=== PATIENT | male | born 2005 | race African-American/Black ===

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

== ENCOUNTER 2025-06-20 07:03 | Emergency (ER) | payer OTHER ==
[2025-06-20 07:17] VITALS: TEMP 96.7
--- NOTE | 2025-06-20 07:26 | ERPHSYRPT ---
- History of Present Illness Patient Subjective Stated Complaint: Pt has had a migraine for 3 days with N&V, pt does not have a hx of migraines, pt is autistic and usually doesn't complain about anything Triage Nursing Assessment: Pt brought to the ER by his mother, hypertensive, rates pain as 02/17, N&V, denies chest pain, no shortness of breath, denies any injuries to head, pain to lower back of head, doesn't appear to be in any distress at this time Physician History: Headache, onset of symptoms about 3 days ago, associated nausea and vomiting, no previous similar headache in the past although the mother states that he does frequently get headaches but this 1 is different and that it the intensity was worse, he is a daily marijuana user, history obtained to the mother as the patient is autistic, She denied history of fever, she also denies any URI type symptoms Timing/Duration: day(s) (3) Head Pain Location: occipital Severity of Pain-Max: moderate Severity of Pain-Current: moderate Recent Head Trauma: frequent headaches Associated Symptoms: nausea/vomiting Allergies/Adverse Reactions: No Known Drug Allergies Allergy (Verified 06/20/25 07:17) Home Medications: Divalproex Sodium 1,500 mg PO UD 11/29/24 [History] Guanfacine HCl 2 mg PO DAILY 06/20/25 [History] Hx Tetanus, Diphtheria Vaccination/Date Given: Yes Hx Influenza Vaccination/Date Given: No Hx Pneumococcal Vaccination/Date Given: No Travel Risk - International Travel Have you traveled outside of the country in past 3 weeks: No - Emerging Infectious Disease Are you exhibiting symptoms associated with any current EIDs: No - Past Medical History Pertinent Past Medical History: Yes Psycho-Social History: Other Other Medical History: autism. behavioral issues. intelectual deficiency - Past Surgical History Past Surgical History: No - Social History Smoking Status: Current every day smoker How long have you smoked: vapes Exposure to second hand smoke: No Drug Use: marijuana - Social Determinants of Health Will the patient participate in the screening: Yes Do you worry about a steady place to live?: No Do you have any problems with any of the following?: No known problems In the past 12 months,have you had to go without utilities?: No Transportation Issues: No Has anyone in your support network made you feel unsafe?: No Have you or anyone in your house had to go w/o enough food: No - Nursing Vital Signs Nursing Vital Signs: Initial Vital Signs Temperature 96.7 F 06/20/25 07:09 Pulse Rate 65 06/20/25 07:09 Blood Pressure 159/89 06/20/25 07:09 O2 Sat by Pulse Oximetry 99 06/20/25 07:09 Pain Scale Pain Intensity 6 - Physical Exam General Appearance: no apparent distress, obese Eye Exam: PERRL/EOMI Ears, Nose, Throat Exam: normal ENT inspection, moist mucous membranes Neck Exam: normal inspection, supple, full range of motion, No meningismus Respiratory Exam: normal breath sounds, lungs clear Cardiovascular Exam: regular rate/rhythm, normal heart sounds Gastrointestinal/Abdominal Exam: soft, No tenderness, No distention Back Exam: normal inspection, normal range of motion Mental Status Exam: alert, oriented x 3, cooperative, other (autistic) order builder loader Exam: normal speech, PERRL, No facial droop Coordination/Gait Exam: normal cerebellar function Motor/Sensory Exam: no motor deficit, no sensory deficit Skin Exam: normal color, warm, dry, No rash SpO2 Interpretation: normal SpO2: 99 Ordered Tests: Medication Summary Discontinued Medications Generic Name Dose Route Start Last Admin Trade Name Freq PRN Reason Stop Dose Admin Ketorolac Tromethamine 30 mg 06/20/25 07:26 06/20/25 07:38 Ketorolac Tromethamine 30 Mg/Ml Inj IV 06/20/25 07:27 30 mg STAT ONE Administration Ketorolac Tromethamine Confirm 06/20/25 07:32 Ketorolac Tromethamine 30 Mg/Ml Inj Administered 06/20/25 07:33 Dose 30 mg .ROUTE .STK-MED ONE Prochlorperazine Edisylate 5 mg 06/20/25 07:26 06/20/25 07:36 Prochlorperazine Edisylate 10 Mg/2 Ml Vial IV 06/20/25 07:27 5 mg STAT ONE Administration Prochlorperazine Edisylate Confirm 06/20/25 07:32 Prochlorperazine Edisylate 10 Mg/2 Ml Vial Administered 06/20/25 07:33 Dose 10 mg .ROUTE .STK-MED ONE - Progress Progress Note: 06/20/25 08:24 clinically improved, outpatient follow up - Departure Departure Disposition: Home Clinical Impression: Headache Qualifiers: Headache type: unspecified Headache chronicity pattern: acute headache Intractability: not intractable Qualified Code(s): R51.9 - Headache, unspecified Condition: Stable Critical Care Time: No Referrals: ZULEYKA ROWE PA [Primary Care Provider, UNKNOWN] - Follow up with PCP 7 days Instructions: Headache, Adult (DC)
[2025-06-20] MEDS ORDERED: Compazine 10 MG/2 ML ONE (07:32)
[2025-06-20] MEDS ORDERED: TORAdol 30 mg Injection ONE (07:32)
[2025-06-20] MEDS: Compazine 10 MG/2 ML IV ONE (07:36)
[2025-06-20] MEDS: TORAdol 30 mg Injection IV ONE (07:38)
[2025-06-20 08:10] VITALS: RESP 20
[2025-06-20 08:36] VITALS: BP 139/90; PULSE 59; O2SAT 96
--- NOTE | 2025-06-20 18:56 | ERPHSYRPT ---
- History of Present Illness Patient Subjective Stated Complaint: Pt has had a migraine for 3 days with N&V, pt does not have a hx of migraines, pt is autistic and usually doesn't complain about anything Triage Nursing Assessment: Pt brought to the ER by his mother, hypertensive, rates pain as 02/17, N&V, denies chest pain, no shortness of breath, denies any injuries to head, pain to lower back of head, doesn't appear to be in any distress at this time Allergies/Adverse Reactions: No Known Drug Allergies Allergy (Verified 06/20/25 07:17) Home Medications: Divalproex Sodium 1,500 mg PO UD 11/29/24 [History] Guanfacine HCl 2 mg PO DAILY 06/20/25 [History] Hx Tetanus, Diphtheria Vaccination/Date Given: Yes Hx Influenza Vaccination/Date Given: No Hx Pneumococcal Vaccination/Date Given: No Travel Risk - International Travel Have you traveled outside of the country in past 3 weeks: No - Emerging Infectious Disease Are you exhibiting symptoms associated with any current EIDs: No - Past Medical History Pertinent Past Medical History: Yes Psycho-Social History: Other Other Medical History: autism. behavioral issues. intelectual deficiency - Past Surgical History Past Surgical History: No - Social History Smoking Status: Current every day smoker How long have you smoked: vapes Exposure to second hand smoke: No Drug Use: marijuana - Social Determinants of Health Will the patient participate in the screening: Yes Do you worry about a steady place to live?: No Do you have any problems with any of the following?: No known problems In the past 12 months,have you had to go without utilities?: No Transportation Issues: No Has anyone in your support network made you feel unsafe?: No Have you or anyone in your house had to go w/o enough food: No - Nursing Vital Signs Nursing Vital Signs: Initial Vital Signs Temperature 96.7 F 06/20/25 07:09 Pulse Rate 65 06/20/25 07:09 Blood Pressure 159/89 06/20/25 07:09 O2 Sat by Pulse Oximetry 99 06/20/25 07:09 Pain Scale Pain Intensity 6 - Physical Exam SpO2 Interpretation: normal SpO2: 96 Ordered Tests: Medication Summary Discontinued Medications Generic Name Dose Route Start Last Admin Trade Name Freq PRN Reason Stop Dose Admin Ketorolac Tromethamine 30 mg 06/20/25 07:26 06/20/25 07:38 Ketorolac Tromethamine 30 Mg/Ml Inj IV 06/20/25 07:27 30 mg STAT ONE Administration Ketorolac Tromethamine Confirm 06/20/25 07:32 Ketorolac Tromethamine 30 Mg/Ml Inj Administered 06/20/25 07:33 Dose 30 mg .ROUTE .STK-MED ONE Prochlorperazine Edisylate 5 mg 06/20/25 07:26 06/20/25 07:36 Prochlorperazine Edisylate 10 Mg/2 Ml Vial IV 06/20/25 07:27 5 mg STAT ONE Administration Prochlorperazine Edisylate Confirm 06/20/25 07:32 Prochlorperazine Edisylate 10 Mg/2 Ml Vial Administered 06/20/25 07:33 Dose 10 mg .ROUTE .STK-MED ONE - Progress Progress Note: 06/20/25 18:52 I contacted the mother by phone as apparently she called the hospital and complained to administration that the patient was mistreated, when I called her and spoke with her directly she became very confrontational and belligerent s wearing and cursing stating that the patient did not receive any type of antiemetics or any kind of diagnostic studies to sort out why he had the headache, when I was attempting to explain to the MotherThat all headaches require her to have special diagnostic studies or lab work, the patient again became very confrontational cursing and swearing at me, I stated to her that if she thinks that he needs to be reevaluated that she should bring him back to the emergency department, she then hung up the phone - Departure Departure Disposition: Home Clinical Impression: Headache Qualifiers: Headache type: unspecified Headache chronicity pattern: acute headache Intractability: not intractable Qualified Code(s): R51.9 - Headache, unspecified Condition: Stable Critical Care Time: No Referrals: ZULEYKA ROWE PA [Primary Care Provider, UNKNOWN] - Follow up with PCP 7 days Instructions: Headache, Adult (DC)
== END 2025-06-20 08:40 | disposition home or self-care (01) ==
LOC: ED 07:03
DX: R51.9 Headache, unspecified (principal); R11.2 Nausea with vomiting, unspecified; Z79.899 Other long term (current) drug therapy; Z72.0 Tobacco use